=== PATIENT | female | born 1990 | race Caucasian/White ===

== ENCOUNTER 2017-04-16 11:30 | Emergency (ER) | payer OTHER ==
[~2017-04-16] VITALS: Ht 170.2 cm; Wt 98.0 kg
[~2017-04-16 11:30] MED LIST: BACTRIM,SEPT1 TABLET PO; FLEXERIL10 MG PO; KEFLEX500 MG PO; LAMICTAL XR50 MG PO; LATUDA40 MG PO; NAPROSYN500 MG PO; PERCOCET 5/31 TABLET PO; PROZAC20 MG PO; VIBRAMYCIN100 MG PO
[2017-04-16] MEDS ORDERED: ALDARA1 EAC1 TP (12:01)
[2017-04-16 12:34] LABS: ADD MIUA? YES; BILIRUBIN NEGATIVE; BLOOD NEGATIVE; GLUCOSE (STRIP) 50; KETONES NEGATIVE; LEUKOCYTES MODERATE; NITRITE NEGATIVE; PROTEIN (STRIP) 100; SPECIFIC GRAVITY 1.024 (1.000-1.030)
[2017-04-16 12:36] LABS: COLOR DK YELLOW ((YELLOW))
[2017-04-16 12:53] LABS: BACTERIA 2+ /HPF; CASTS NONE SEEN /LPF; CRYSTALS NONE SEEN; EPITHELIAL CELLS 1+ /HPF; MUCUS NONE SEEN /LPF; RED BLOOD CELLS NONE SEEN /HPF (0-5); UCUL ADDED? YES; WHITE BLOOD CELLS 20-30 /HPF (0-5)
[2017-04-16] MEDS ORDERED: KEFLEX500 MG PO (13:41)
[2017-04-16] MEDS ORDERED: TOPICAINE113 GM TP (13:41)
[2017-04-16 13:57] VITALS: BP 128/71
[2017-04-18 12:12] LABS: CHLAMYDIA TRACHOMATIS NEGATIVE; NEISSERIA GONORRHOEAE NEGATIVE
== END 2017-04-16 13:57 | disposition home or self-care (01) ==
LOC: EME 11:30
PROVIDERS: Physician Assistant Medical
DX: O98.313 Other infections with a predominantly sexual mode of transmission complicating pregnancy, third trimester (principal); A63.0 Anogenital (venereal) warts; O23.43 Unspecified infection of urinary tract in pregnancy, third trimester; N39.0 Urinary tract infection, site not specified; Z3A.30 30 weeks gestation of pregnancy; Z88.0 Allergy status to penicillin; Z91.040 Latex allergy status; Z88.8 Allergy status to other drugs, medicaments and biological substances
CPT/HCPCS: 81003; 87086; 87210; 87491; 87591; 99281; 99284

== ENCOUNTER 2017-06-30 12:30 | Inpatient (IN) | payer OTHER ==
[2017-06-30] VITALS (10 sets, daily range): BP systolic 128–149; BP diastolic 72–84
[~2017-06-30] VITALS: Ht 170.2 cm; Wt 104.0 kg
[~2017-06-30 12:30] MED LIST changes: +ALDARA1 EAC1 TP; +TOPICAINE113 GM TP
[2017-06-30] MEDS ORDERED: PRENATAL TABLE1 EAC3 PO (13:48)
[2017-06-30 14:17] LABS: BASOPHIL (%) 0.3 % (0-1); EOSINOPHIL (%) 0.9 % (0-5); EOSINOPHIL COUNT 0.1 K/uL (0-0.3); HEMATOCRIT 31.9 % (36.0-46.0); HEMOGLOBIN 9.8 G/DL (11.9-15.5); IMMATURE GRANULOCYTE (%) 0.8 % (0.0-0.7); LYMPHOCYTE (%) 11.4 % (15-42); LYMPHOCYTE COUNT 1.7 K/uL (1.0-2.8); MCH 21.3 PG (29.0-34.0); MCHC 30.7 G/DL (30.0-36.0); MCV 69.2 FL (83-99); MONOCYTE (%) 4.2 % (3-12); MONOCYTE COUNT 0.6 K/uL (0-0.8); NEUTROPHIL (%) 82.4 % (45-76); NEUTROPHIL COUNT 11.9 K/uL (1.8-6.4); PLATELET COUNT 237 K/uL (156-360); RBC DIS.WIDTH-CV 16.1 % (11.8-14.6); RBC DIS.WIDTH-SD 40.1 % (39-53); RED BLOOD COUNT 4.61 M/uL (3.80-5.20); WHITE BLOOD COUNT 14.4 K/uL (4.1-10.2)
[2017-06-30 15:08] LABS: BENZODIAZEPINES, URINE SCREEN Negative (200 ng/mL)
[2017-06-30] MEDS ORDERED: MOTRIN800 MG PO (16:07)
[2017-07-01 22:47] VITALS: BP 125/64
[2017-07-02 07:57] VITALS: BP 140/87
[2017-07-02 08:37] VITALS: BP 142/85
== END 2017-07-02 14:29 | disposition home or self-care (01) | DRG 775 ==
LOC: LDRP-OP 12:30 → 2WEST 12:32 → LDRP-OP 07-26 10:06
PROVIDERS: Nurse Practitioner
PROC: 10E0XZZ Delivery of Products of Conception, External Approach (ICD-10-PCS; principal; 2017-06-30)
PROC: 10907ZC Drainage of Amniotic Fluid, Therapeutic from Products of Conception, Via Natural or Artificial Opening (ICD-10-PCS; 2017-06-30)
DX: O76 Abnormality in fetal heart rate and rhythm complicating labor and delivery (principal); O48.0 Post-term pregnancy; O99.324 Drug use complicating childbirth; F12.90 Cannabis use, unspecified, uncomplicated; O69.1XX0 Labor and delivery complicated by cord around neck, with compression, not applicable or unspecified; O99.214 Obesity complicating childbirth; E66.9 Obesity, unspecified; Z68.31 Body mass index [BMI] 31.0-31.9, adult; O99.334 Smoking (tobacco) complicating childbirth; F17.200 Nicotine dependence, unspecified, uncomplicated; Z3A.40 40 weeks gestation of pregnancy; Z37.0 Single live birth
CPT/HCPCS: 80306 90; 85025; J7120

== ENCOUNTER 2017-10-14 11:46 | Inpatient (IN) | payer SELFPAY ==
[~2017-10-14] VITALS: Ht 167.6 cm; Wt 88.2 kg
[~2017-10-14 11:46] MED LIST changes: +MOTRIN800 MG PO; +PRENATAL TABLE1 EAC3 PO
[2017-10-14 13:02] LABS: HEMATOCRIT 38.6 % (36.0-46.0); HEMOGLOBIN 13.1 G/DL (11.9-15.5); MCH 25.6 PG (29.0-34.0); MCHC 33.9 G/DL (30.0-36.0); MCV 75.5 FL (83-99); PLATELET COUNT 269 K/uL (156-360); RBC DIS.WIDTH-CV 17.4 % (11.8-14.6); RBC DIS.WIDTH-SD 47.8 % (39-53); RED BLOOD COUNT 5.11 M/uL (3.80-5.20)
[2017-10-14 13:12] LABS: ALBUMIN 4.7 g/dL (3.2-4.8); CHLORIDE 106 mEq/L (99-109); POTASSIUM 3.3 mEq/L (3.7-5.4); SODIUM 140 mEq/L (136-147)
[2017-10-14 13:15] LABS: GLUCOSE 150 mg/dL (70-99)
[2017-10-14 13:17] LABS: TOTAL BILIRUBIN 0.3 mg/dL (0.0-1.0)
[2017-10-14 13:18] LABS: ALKALINE PHOSPHATASE 69 IU/L (3-129); SERUM ETHYL ALCOHOL < 10 mg/dL
[2017-10-14 13:19] LABS: CREATININE 0.9 mg/dL (0.6-1.3); GFR ESTIMATE (CALCULATED) > 59 mL/min/
[2017-10-14 13:20] LABS: AST (GOT) 11 IU/L (2-34); UREA NITROGEN (BUN) 8 mg/dL (9-23)
[2017-10-14 13:22] LABS: ALT (GPT) 4 IU/L (3-49); LIPASE 16 U/L (1.0-51.0)
[2017-10-14 13:24] LABS: TROP-I INTERPRETATION NEGATIVE; TROPONIN-I < 0.01 ng/mL (0.0-0.30)
[2017-10-14 15:16] LABS: AMPHETAMINE NEGATIVE (500 ng/mL); BARBITURATES NEGATIVE (200 ng/mL); BENZODIAZEPINES NEGATIVE (150 ng/mL); BUPRENORPHINE NEGATIVE (10 ng/mL); COCAINE NEGATIVE (150 ng/mL); METHADONE NEGATIVE (200 ng/mL); METHAMPHETAMINE NEGATIVE (500 ng/mL); OPIATES (MORPHINE) NEGATIVE (100 ng/mL); OXYCODONE NEGATIVE (100 ng/mL); PHENCYCLIDINE NEGATIVE (25 ng/mL); PROPOXYPHENE NEGATIVE (300 ng/mL); THC CANNABINOIDS PRESUMPTIVE POSITIVE (50 ng/mL); TRICYCLIC ANTIDEPRESSANTS NEGATIVE (300 ng/mL)
[2017-10-14 19:24] LABS: MAGNESIUM 2.1 mg/dL (1.3-2.7)
[2017-10-14 19:29] VITALS: BP 134/85
[2017-10-14 19:33] LABS: TROP-I INTERPRETATION POSITIVE
[2017-10-14 19:43] LABS: TROPONIN-I 1.03 ng/mL (0.0-0.30)
[2017-10-14 22:51] LABS: INTER. NORMALIZED RATIO 1.1
[2017-10-14 22:54] LABS: PTT 28.4 SEC (25-37)
[2017-10-15] VITALS (9 sets, daily range): BP systolic 103–130; BP diastolic 56–84
[2017-10-15 01:07] LABS: TROP-I INTERPRETATION POSITIVE
[2017-10-15 01:09] LABS: TROPONIN-I 7.46 ng/mL (0.0-0.30)
[2017-10-15 05:58] LABS: BASOPHIL (%) 0.4 % (0-1); EOSINOPHIL (%) 2.4 % (0-5); EOSINOPHIL COUNT 0.2 K/uL (0-0.3); HEMOGLOBIN 11.3 G/DL (11.9-15.5); IMMATURE GRANULOCYTE (%) 0.3 % (0.0-0.7); LYMPHOCYTE (%) 40.7 % (15-42); MCHC 32.3 G/DL (30.0-36.0); MCV 77.4 FL (83-99); MONOCYTE COUNT 0.5 K/uL (0-0.8); NEUTROPHIL (%) 51.2 % (45-76); PLATELET COUNT 221 K/uL (156-360); RBC DIS.WIDTH-CV 17.7 % (11.8-14.6); RED BLOOD COUNT 4.52 M/uL (3.80-5.20); WHITE BLOOD COUNT 9.8 K/uL (4.1-10.2)
[2017-10-15 06:15] LABS: TROP-I INTERPRETATION POSITIVE; TROPONIN-I 11.22 ng/mL (0.0-0.30)
[2017-10-15 06:25] LABS: CHLORIDE 109 MEQ/L (99-109); CREATININE 0.9 MG/DL (0.6-1.3); GFR ESTIMATE (CALCULATED) > 59 mL/min/; POTASSIUM 3.9 MEQ/L (3.7-5.4); SODIUM 141 MEQ/L (136-147); UREA NITROGEN (BUN) 7 mg/dL (9-23)
[2017-10-15 06:30] LABS: GLUCOSE 94 mg/dL (70-99)
[2017-10-15 07:38] LABS: THYROTROPIN (TSH) 3.6 MIU/L (0.4-5.5)
[2017-10-15 12:27] LABS: PTT 71.7 SEC (25-37)
[2017-10-15 13:01] LABS: TROPONIN-I 6.42 ng/mL (0.0-0.30)
[2017-10-15 13:02] LABS: TROP-I INTERPRETATION POSITIVE
[2017-10-15 13:49] LABS: HDL CHOLESTEROL 31 MG/DL (Desirable>=50); LDL CHOLESTEROL 98 mg/dL (Desirable<100); NON-HDL CHOLESTEROL 114 mg/dL (Desirable<160); TOTAL CHOLESTEROL 145 mg/dL (Desirable<200); TRIGLYCERIDES 81 MG/DL (Normal: <150)
[2017-10-15 18:59] LABS: TROP-I INTERPRETATION POSITIVE; TROPONIN-I 4.59 ng/mL (0.0-0.30)
[2017-10-16 04:03] VITALS: BP 113/58
[2017-10-16 06:18] LABS: CHLORIDE 108 MEQ/L (99-109); CREATININE 0.8 MG/DL (0.6-1.3); GFR ESTIMATE (CALCULATED) > 59 mL/min/; GLUCOSE 88 mg/dL (70-99); SODIUM 138 MEQ/L (136-147); UREA NITROGEN (BUN) 14 mg/dL (9-23)
[2017-10-16 06:20] LABS: TROP-I INTERPRETATION POSITIVE; TROPONIN-I 4.12 ng/mL (0.0-0.30)
[2017-10-16 07:48] VITALS: BP 102/52
[2017-10-16 11:12] VITALS: BP 100/53
[2017-10-16 16:02] VITALS: BP 117/62
[2017-10-16 19:29] VITALS: BP 118/67
[2017-10-16 23:10] VITALS: BP 115/68
[2017-10-17 04:00] VITALS: BP 134/62
[2017-10-17 06:31] LABS: HEMATOCRIT 38.2 % (36.0-46.0); HEMOGLOBIN 12.2 G/DL (11.9-15.5); MCH 24.9 PG (29.0-34.0); MCHC 31.9 G/DL (30.0-36.0); PLATELET COUNT 226 K/uL (156-360); RBC DIS.WIDTH-CV 17.8 % (11.8-14.6); RBC DIS.WIDTH-SD 50.1 % (39-53); WHITE BLOOD COUNT 8.1 K/uL (4.1-10.2)
[2017-10-17 06:53] LABS: CHLORIDE 106 MEQ/L (99-109); CREATININE 0.8 MG/DL (0.6-1.3); GFR ESTIMATE (CALCULATED) > 59 mL/min/; GLUCOSE 96 mg/dL (70-99); POTASSIUM 4.2 MEQ/L (3.7-5.4); SODIUM 140 MEQ/L (136-147); UREA NITROGEN (BUN) 19 mg/dL (9-23)
[2017-10-17 07:16] VITALS: BP 112/65
[2017-10-17 11:42] VITALS: BP 102/54
[2017-10-17 20:22] VITALS: BP 127/76
[2017-10-18 00:28] VITALS: BP 106/59
[2017-10-18 04:25] VITALS: BP 103/58
[2017-10-18 05:55] LABS: CHLORIDE 107 MEQ/L (99-109); CREATININE 0.7 MG/DL (0.6-1.3); GFR ESTIMATE (CALCULATED) > 59 mL/min/; GLUCOSE 94 mg/dL (70-99); POTASSIUM 3.9 MEQ/L (3.7-5.4); SODIUM 137 MEQ/L (136-147); UREA NITROGEN (BUN) 15 mg/dL (9-23)
[2017-10-18 09:00] VITALS: BP 115/68
[2017-10-18 12:11] VITALS: BP 124/73
[2017-10-18] MEDS ORDERED: ASPIR-LOW81 MG PO (13:37)
[2017-10-18] MEDS ORDERED: NICOTINE PATCH1 EAC1 TD (13:37)
[2017-10-18] MEDS ORDERED: CLOPIDOGREL75 MG PO (13:37)
[2017-10-18] MEDS ORDERED: K-DUR10 MEQ PO (13:38)
[2017-10-18] MEDS ORDERED: PROAIR RESPICL90 MCG IH (13:45)
== END 2017-10-18 15:55 | disposition home or self-care (01) | DRG 281 ==
LOC: EME 11:46 → EDOF 17:22 → ENRESERV 17:30 → 4SOUTH 19:17 → ENRESERV 10-15 01:23 → 4SOUTH 10-15 01:26 → 4EAST 10-15 01:26 → ENRESERV 10-15 01:31 → 4EAST 10-15 02:01
PROVIDERS: Emergency Medicine; Hospitalist; Internal Medicine; Internal Medicine Cardiovascular Disease; Physician Assistant
DX: I21.4 Non-ST elevation (NSTEMI) myocardial infarction (principal); T43.611A Poisoning by caffeine, accidental (unintentional), initial encounter; I47.2 Ventricular tachycardia; E87.6 Hypokalemia; R94.31 Abnormal electrocardiogram [ECG] [EKG]; D72.829 Elevated white blood cell count, unspecified; J45.909 Unspecified asthma, uncomplicated; E04.1 Nontoxic single thyroid nodule; R91.8 Other nonspecific abnormal finding of lung field; Z72.820 Sleep deprivation; F12.10 Cannabis abuse, uncomplicated; F31.9 Bipolar disorder, unspecified; F17.210 Nicotine dependence, cigarettes, uncomplicated; Z91.5 Personal history of self-harm; Z82.49 Family history of ischemic heart disease and other diseases of the circulatory system
CPT/HCPCS: 71275; 80048; 80053; 80061; 83690; 83735; 83880; 84439; 84443; 84484; 84999; 85025; 85027; 85610; 85730; 93005; 99281; 99285; C1769; C1887; G0378; G0480; J1644; J1650; J2060; J2250; J2405; J3010; J3480; J7030